=== PATIENT | male | born 1930 | race Caucasian/White ===

== ENCOUNTER → 2019-05-02 14:35 | Outpatient (CLI) | payer MEDICARE ==
[2019-05-03 08:11] LABS: IMMUNOGLOBULIN A 229 mg/dL (61-437); IMMUNOGLOBULIN G 1430 mg/dL (700-1600); IMMUNOGLOBULIN M 38 mg/dL (15-143)
[2019-05-05 12:09] LABS: ANA REFLEX - DIRECT Negative (Negative); IGG SUBCLASS 1 980 mg/dL (248-810); IGG SUBCLASS 2 315 mg/dL (130-555); IGG SUBCLASS 3 91 mg/dL (15-102); IGG SUBCLASS 4 60 mg/dL (2-96); IGGS - IGG SERUM 1443 mg/dL (700-1600)
[2019-05-07 03:07] LABS: IMMUNOGLOBULIN E 386 IU/mL (6-495)
== END | disposition home or self-care (01) ==
LOC: D.LAB 14:35 → D.RT 15:30 → D.CT 16:00
PROVIDERS: ATTEND Internal Medicine Pulmonary Disease
DX: R05 Cough (principal)